=== PATIENT | male | born 1985 | race Hispanic/Latino ===

== ENCOUNTER → 2017-03-28 | Day surgery (SDC) | payer OTHER ==
[~2017-03-28] MED LIST: ACETAMINOPHEN 1000 MG/100 ML IV ONE; BUPIVACAINE HCL 0.5% INJ 30 ML VIAL INJ ONE; CEFAZOLIN SOD 1 GM VIAL ONE; DEXAMETHASONE SOD PHOS INJ 4 MG/ML VIAL ONE; FENTANYL CITRATE/PF 100MCG/2 ML INJ ONE; KETOROLAC TROMETHAMINE 30 MG/ML VIAL ONE; LIDOCAINE HCL 2% LOCAL INJ 5 ML SDV VIAL INJ ONE; METOCLOPRAMIDE HCL 10 MG/2ML VIAL ONE; MIDAZOLAM HCL 2 MG/2 ML VIAL ONE; NEOSTIGMINE 1 MG/ML 10ML VIAL ONE; ONDANSETRON HCL INJ 2 MG/ML VIAL ONE; PROPOFOL IV EMULSION 10 MG/ML 20 ML VIAL ONE; SEVOFLURANE INHAL SOLN 250 ML PEN BTL ONE
--- NOTE | 2017-04-24 14:46 | Operative Report ---
DATE OF PROCEDURE: March 28, 2017 LOCATION: Room number is outpatient, [facility]. PATIENT'S AGE: 32 PREOPERATIVE DIAGNOSES 1. 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 2. 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 POSTOPERATIVE DIAGNOSES 1. 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 2. 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 TITLE OF OPERATION: Fusion in the 1st metatarsophalangeal joint of the left foot with plate fixation. PROCEDURE IN DETAIL: The patient was taken to the operating room in a mildly sedated state and placed upon the operating table in supine position. Following induction of general anesthetic, the left lower extremity was elevated to 60 degrees to exsanguinate before inflating the pneumatic thigh tourniquet to 350 mmHg to create hemostasis. Left lower extremity was placed upon the operating table prior to performing the following procedure: Procedure #1: Hallux abductovalgus deformity with degenerative joint disease correction with fusion of 1st metatarsophalangeal joint of the left foot. Incision was made overlying the dorsomedial aspect of the 1st metatarsophalangeal joint on the left foot. The incision was deepened via sharp and blunt dissection to the level of dorsal capsular structure. Care was taken to identify and retract all vital structures encountered. The head of the first metatarsal to the level of the surgical site remodeled utilizing a cup and cone reamer. This having been accomplished, all the way down to bleeding cancellous bone. Similar procedure was done on the base of the proximal phalanx of the same joint of the left hallux. The area was then irrigated with copious amounts of sterile saline solution. All surrounding and inflamed tissue were debrided in the joint area, particularly any bony prominences or osteophytes were removed. The joint was then fixated and stabilized with cortical bone screws and dorsal plate. The area was irrigated with copious amounts of sterile saline solution. Deep closure was 3-0 Vicryl, subcutaneous closure 4-0 Vicryl, and skin closure 4-0 nylon. The areas of surgery were then blocked 0.5 Marcaine and Decadron [place]. Human tissue allograft was used to facilitate healing. Patient left the operating room with vital signs stable in apparent satisfactory condition, having tolerated both the procedure and anesthetic very well. Job#: [id number] PAT
== END | disposition home or self-care (01) ==
LOC: OR 07:32
PROVIDERS: ATTEND Podiatrist Foot Surgery
DX: M20.12 Hallux valgus (acquired), left foot (principal); M19.072 Primary osteoarthritis, left ankle and foot; R05 Cough
CPT/HCPCS: 28750; 76001; C1713 ×6; J0690; J1100; J1885; J2001; J2250; J2405; J2710; J2765